=== PATIENT | female | born 1965 | race Asian ===

== ENCOUNTER 2018-08-01 17:14 | Inpatient (IN) | payer OTHER ==
[~2018-08-01] VITALS: Ht 154.9 cm; Wt 67.2 kg
[2018-08-01 18:20] LABS: CARBON DIOXIDE 35.7 mmol/L (21-32); CHLORIDE SERUM 94 mmol/L (98-107); CREATININE SERUM 2.1 mg/dL (0.6-1.0); GFR1 26 mL/min; GLUCOSE SERUM 123 mg/dL (74-106); POTASSIUM SERUM 3.7 mmol/L (3.5-5.1); SODIUM SERUM 132 mmol/L (136-145)
[2018-08-01 18:21] LABS: BASOPHIL % 0.3 % (0-2); PLATELET COUNT 267 x10^3mcL (130-400); RED CELL DISTRIBUTION WIDTH 12.3 % (11.5-14.5)
[2018-08-01 18:25] LABS: ALBUMIN 3.7 g/dL (3.4-5.0); ALKALINE PHOSPHATASE 151 U/L (46-116); ALT/SGPT 41 U/L (14-59); AST/SGOT 19 U/L (15-37); BILIRUBIN TOTAL 0.5 mg/dL (0.20-1.00); TOTAL PROTEIN, SERUM 7.3 g/dL (6.4-8.2)
[2018-08-01] MEDS ORDERED: AMITRIPTYLINE150 MG PO (18:53)
[2018-08-01] MEDS ORDERED: XANAX0.25 MG PO (18:53)
[2018-08-01] MEDS ORDERED: VITAMIN C500 M6 PO (18:53)
[2018-08-01] MEDS ORDERED: BENAZEPRIL HYDR20 M1 PO (18:54)
[2018-08-01] MEDS ORDERED: NATURAL IRON65 MG PO (18:54)
[2018-08-01] MEDS ORDERED: BACLOFEN10 MG PO (18:54)
[2018-08-01] MEDS ORDERED: NEURONTIN600 MG PO (18:55)
[2018-08-01] MEDS ORDERED: MULTIVITAMIN1 SGL PO (18:55)
[2018-08-01] MEDS ORDERED: MORPHINE SULFAT60 MG PO (18:55)
[2018-08-01] MEDS ORDERED: NARCAN4 MG NS (18:56)
[2018-08-01] MEDS ORDERED: PROTONIX40 MG PO (18:57)
[2018-08-01] MEDS ORDERED: OXYCODONE HYDRO10 M1 PO (18:57)
[2018-08-01] MEDS ORDERED: DROPLET NE EAC MC (18:58)
[2018-08-01] MEDS ORDERED: FORTEO250 MCG/ML SQ (18:59)
[2018-08-01 19:00] LABS: microscopic required? NO
[2018-08-01 19:25] LABS: urine erythrocyte NEGATIVE (NEGATIVE)
[2018-08-01 19:51] VITALS: BP 97/54
[2018-08-01 20:13] LABS: MAGNESIUM 3.8 mg/dL (1.8-2.4); PHOSPHOROUS 5.2 mg/dL (2.5-4.9)
[2018-08-01 20:15] LABS: CHOLESTEROL/HDL RATIO 2.8
[2018-08-01 20:21] LABS: T3 TOTAL 1.8 ng/mL
[2018-08-01 20:23] LABS: FREE T4 1.36 ng/dL (0.76-1.46); FREE THYROXINE INDEX 3.9 ug/dL (1.4-4.5); T4(THYROXINE) 10.9 ug/dL (4.7-13.3)
[2018-08-01 21:12] VITALS: BP 98/55
[2018-08-01 21:38] LABS: AMPHETAMINE QUAL UR NONE DETECTED (See below)
[2018-08-02 03:00] VITALS: BP 98/55
[2018-08-02 06:06] VITALS: BP 92/57
[2018-08-02 06:15] LABS: PLATELET COUNT 227 x10^3mcL (130-400); RED CELL DISTRIBUTION WIDTH 12.4 % (11.5-14.5)
[2018-08-02 06:37] LABS: BASOPHIL % 0 % (0-2)
[2018-08-02 06:39] LABS: CALCIUM 8.7 mg/dL (8.5-10.1); CARBON DIOXIDE 29.6 mmol/L (21-32); CHLORIDE SERUM 106 mmol/L (98-107); CREATININE SERUM 0.9 mg/dL (0.6-1.0); GFR1 > 60 mL/min; GLUCOSE SERUM 101 mg/dL (74-106); MAGNESIUM 2.5 mg/dL (1.8-2.4); PHOSPHOROUS 3.2 mg/dL (2.5-4.9); POTASSIUM SERUM 4.1 mmol/L (3.5-5.1); SODIUM SERUM 141 mmol/L (136-145)
[2018-08-02 09:18] VITALS: BP 126/78
[2018-08-02 11:52] VITALS: BP 108/68
== END 2018-08-02 16:54 | disposition home or self-care (01) | DRG 682 ==
LOC: ED 17:14 → DU 18:40 → EDBEDREQSVC 18:49 → DU 19:28
PROVIDERS: Emergency Medicine; Internal Medicine
DX: N17.0 Acute kidney failure with tubular necrosis (principal); J96.02 Acute respiratory failure with hypercapnia; E87.1 Hypo-osmolality and hyponatremia; R41.82 Altered mental status, unspecified; R33.0 Drug induced retention of urine; T40.605A Adverse effect of unspecified narcotics, initial encounter; I10 Essential (primary) hypertension; G89.29 Other chronic pain; E83.41 Hypermagnesemia; E83.39 Other disorders of phosphorus metabolism; M81.0 Age-related osteoporosis without current pathological fracture; E78.5 Hyperlipidemia, unspecified; R73.03 Prediabetes; Z79.891 Long term (current) use of opiate analgesic; Z68.28 Body mass index [BMI] 28.0-28.9, adult
CPT/HCPCS: 36600; 84439; 90658; G0480; J2310; J7030; J7620; Q0092

== ENCOUNTER → 2020-05-11 | Outpatient (CLI) | payer OTHER ==
[~2020-05-11] MED LIST: AMITRIPTYLINE150 MG PO; BACLOFEN10 MG PO; BENAZEPRIL HYDR20 M1 PO; DROPLET NE EAC MC; FORTEO250 MCG/ML SQ; MORPHINE SULFAT60 MG PO; MULTIVITAMIN1 SGL PO; NARCAN4 MG NS; NATURAL IRON65 MG PO; NEURONTIN600 MG PO; OXYCODONE HYDRO10 M1 PO; PROTONIX40 MG PO; VITAMIN C500 M6 PO; XANAX0.25 MG PO
== END | disposition home or self-care (01) ==
LOC: RD 13:15
PROC: B54BZZZ Ultrasonography of Right Lower Extremity Veins (ICD-10-PCS; principal; 2020-05-11)
DX: M79.89 Other specified soft tissue disorders (principal)
CPT/HCPCS: Q9967